=== PATIENT | male | born 1965 | race Caucasian/White ===

== ENCOUNTER 2019-12-27 15:32 | Emergency (ER) | payer MEDICARE ==
[~2019-12-27] VITALS: Ht 170.1 cm; Wt 86.3 kg
[~2019-12-27 15:32] MED LIST: BACLOFEN; CPR500T PO; CYMBALTA; GABAPENTIN; LISINOPRIL; OXYCONTIN; PREVACID; RISPERIDONE; TRAMADOL; TRILIPIX; [UNRECOGNIZED DRUG - REMARK]
--- NOTE | 2019-12-27 15:40 | NUR ---
Brought to ED RM 1 for AMS complaint. Hx being obtained from son and his significant other. Pt had an appt with Dr Guerrero this a.m. and family retuned him to home at 0900 and patient was at normal mental status when last seen then. Pt was unable to get urine for Dr Guerrero as he had emptied his neurogenic bladder via catheter prior to appt not remembering he needed to give urine. Pt's son called the house at 1515 checking on patient and he seemed confused and or not getting facts straight so son went to check on him. Pt states he even found him with the door open and not able to process anything. Son checked patient with accucheck and reported it was 147. Initially son thought he saw a mouth droop on right side but now reports his smile appears more normal. Pt has eyes closed frequently and barely keeps them open. Beginning neuro exam with Dr Preston it is discovered patient has right eye ptosis as normal per son. Pt can not answer question except knew name and at ER. Unable to do age, birthdate, month, year, or current time. Cannot not elicit a valid history of patient. Prior visit yrs ago at [facility].
--- NOTE | 2019-12-27 15:54 | NUR ---
18 ga placed to [facility] an labs drawn.
--- NOTE | 2019-12-27 16:00 | NUR ---
To CT, patient was difficult to get NIH exam completed prior, very drowsy and difficult to follow directions and yet when awake appears unable to complete exam with numerous re-instruction.
[2019-12-27 16:07] LABS: HEMATOCRIT 40 % (40-54); HEMOGLOBIN 14.2 G/DL (13.3-17.7); MEAN CORPUSCULAR HEMOGLOBIN 31 PG (25-34); WHITE BLOOD COUNT 6.7 10^3/uL (4.3-11.0)
[2019-12-27 16:08] LABS: BASOPHILS % (AUTO) 1 % (0-10); EOSINOPHILS # (AUTO) 0.1 10^3/uL (0.0-0.3); EOSINOPHILS % (AUTO) 1 % (0-10); LYMPHOCYTES # (AUTO) 1.4 X 10^3 (1.0-4.0); LYMPHOCYTES % (AUTO) 20 % (12-44); MEAN CORPUSCULAR HGB CONC 35 G/DL (32-36); MEAN CORPUSCULAR VOLUME 88 FL (80-99); MEAN PLATELET VOLUME 8.6 FL (7.4-10.4); MONOCYTES # (AUTO) 0.5 X 10^3 (0.0-1.0); MONOCYTES % (AUTO) 7 % (0-12); NEUTROPHILS # (AUTO) 4.7 X 10^3 (1.8-7.8); NEUTROPHILS % (AUTO) 71 % (42-75); PLATELET COUNT 330 10^3/uL (130-400); RED CELL DISTRIBUTION WIDTH 12.8 % (10.0-14.5)
--- NOTE | 2019-12-27 16:10 | NUR ---
Pietro luis in EDM - 12/27/19 at 1843 by RODRIGUEZPPA Deferred NIH exam as sedated from Ativan in CT to comply with obtaining CT work up. Pt would not lay still
--- NOTE | 2019-12-27 16:10 | ED General ---
General Stated Complaint: ALTERED MENTAL STATUS History of Present Illness Date Seen by Provider: Dec 27, 2019 Time Seen by Provider: 16:08 Initial Comments Patient presenting to emergency department for evaluation of multiple neurologic symptoms that started sometime in between 9:30 and 3:30 today. Patient was last seen normal at 9:30 this morning by family as he was speaking normally and acting normally. However son called him around 3:15 to 330 today and was slurring his words and was quite confused and did not seem to follow commands well. He is usually alert and oriented 3 and has clear speech and is currently not acting anything like himself. He does not have access to his medications to take more than he should and they also say that he does not drink alcohol. Disha billings's blood sugar was 140. He does have a history of hypertension diabetes high cholesterol and does not take any blood thinners. He is in no obvious distress with normal vital signs. Allergies and Home Medications Allergies Coded Allergies: Cortisone (Verified Allergy, 11/18/12) Home Medications [Baclofen] , 5 TIMES/DAY, (Reported) [Gabapentin] , TID, (Reported) [Tramadol] , 5 TIMES/DAY, (Reported) [Trilipix] , DAILY, (Reported) Patient Home Medication List Home Medication List Reviewed: Yes Review of Systems Review of Systems Constitutional: no symptoms reported EENTM: no symptoms reported Respiratory: no symptoms reported Cardiovascular: no symptoms reported Gastrointestinal: no symptoms reported Genitourinary: other (self catheterizes for neurogenic bladder) Musculoskeletal: joint pain, muscle pain Skin: no symptoms reported Psychiatric/Neurological: Other (slurred speech and confusion) All Other Systems Reviewed Negative Unless Noted: Yes Past Eysgcfj-Cludfp-Cdepbc Hx Patient Social History Recent Foreign Travel: No Contact w/Someone Who Travel: No Immunizations Up To Date Date of Pneumonia Vaccine: Aug 21, 2009 Date of Influenza Vaccine: Sep 20, 2012 Past Medical History Asthma Renal Failure Diabetes, Non-Insulin dep Adverse Reaction/Blood Tranf: No Physical Exam Vital Signs Vital Signs - First Documented 12/27/19 15:40 Temp 37.2 Pulse 92 Resp 20 B/P (MAP) 133/87 (102) Pulse Ox 95 O2 Delivery Room Air Capillary Refill : Height, Weight, BMI Height: '" Weight: lbs. oz. kg; BMI Method:Stated General Appearance: Other (lying in bed with his eyes closed) HEENT: PERRL/EOMI Neck: Non Tender, Supple Respiratory: Lungs Clear, No Respiratory Distress Cardiovascular: Regular Rate, Rhythm Gastrointestinal: Non Tender, Soft Back: Normal Inspection Extremity: Normal Capillary Refill Neurologic/Psychiatric: Alert, Disoriented, Other (patient received an NIH stroke scale of 9 as he is disoriented to time. He has decreased sensation in multiple areas as well as limb ataxia with his left upper extremity. He has dysarthria and dysphagia. ) Skin: Normal Color, Warm/Dry Progress/Results/Core Measures Suspected Sepsis SIRS Temperature: Pulse: Respiratory Rate: Laboratory Tests 12/27/19 15:54: White Blood Count 6.7 Blood Pressure / Mean: Laboratory Tests 12/27/19 15:54: Creatinine 1.05, INR Comment 1.0, Platelet Count 330, Total Bilirubin 0.2 Results/Orders Lab Results Laboratory Tests Test 12/27/19 15:54 Range/Units White Blood Count 6.7 4.3-11.0 10^3/uL Red Blood Count 4.59 4.35-5.85 10^6/uL Hemoglobin 14.2 13.3-17.7 G/DL Hematocrit 40 40-54 % Mean Corpuscular Volume 88 80-99 FL Mean Corpuscular Hemoglobin 31 25-34 PG Mean Corpuscular Hemoglobin Concent 35 32-36 G/DL Red Cell Distribution Width 12.8 10.0-14.5 % Platelet Count 330 130-400 10^3/uL Mean Platelet Volume 8.6 7.4-10.4 FL Neutrophils (%) (Auto) 71 42-75 % Lymphocytes (%) (Auto) 20 12-44 % Monocytes (%) (Auto) 7 0-12 % Eosinophils (%) (Auto) 1 0-10 % Basophils (%) (Auto) 1 0-10 % Neutrophils # (Auto) 4.7 1.8-7.8 X 10^3 Lymphocytes # (Auto) 1.4 1.0-4.0 X 10^3 Monocytes # (Auto) 0.5 0.0-1.0 X 10^3 Eosinophils # (Auto) 0.1 0.0-0.3 10^3/uL Basophils # (Auto) 0.0 0.0-0.1 10^3/uL Prothrombin Time 14.0 12.2-14.7 SEC INR Comment 1.0 0.8-1.4 Activated Partial Thromboplast Time 31 24-35 SEC Sodium Level 138 135-145 MMOL/L Potassium Level 3.6 3.6-5.0 MMOL/L Chloride Level 102 98-107 MMOL/L Carbon Dioxide Level 24 21-32 MMOL/L Anion Gap 12 5-14 MMOL/L Blood Urea Nitrogen 21 H 7-18 MG/DL Creatinine 1.05 0.60-1.30 MG/DL Estimat Glomerular Filtration Rate > 60 BUN/Creatinine Ratio 20 Glucose Level 175 H 70-105 MG/DL Calcium Level 10.2 H 8.5-10.1 MG/DL Corrected Calcium 8.5-10.1 MG/DL Magnesium Level 2.0 1.6-2.4 MG/DL Total Bilirubin 0.2 0.1-1.0 MG/DL Aspartate Amino Transf (AST/SGOT) 15 5-34 U/L Alanine Aminotransferase (ALT/SGPT) 23 0-55 U/L Alkaline Phosphatase 78 40-136 U/L Troponin I < 0.30 <0.30 NG/ML Pro-B-Type Natriuretic Peptide 17.0 <75.0 PG/ML Total Protein 7.1 6.4-8.2 GM/DL Albumin 4.6 H 3.2-4.5 GM/DL Serum Alcohol < 10 <10 MG/DL My Orders Orders - CAROLYN CABALLERO DO Alcohol (12/27/19 15:51) Ct Head Wo (12/27/19 15:51) Cbc With Automated Diff (12/27/19 15:51) Comprehensive Metabolic Panel (12/27/19 15:51) Drug Screen Stat (Urine) (12/27/19 15:51) Magnesium (12/27/19 15:51) Partial Thromboplastin Time (12/27/19 15:51) Probnp Fs (12/27/19 15:51) Protime With Inr (12/27/19 15:51) Troponin I Fs (12/27/19 15:51) Ua Culture If Indicated (12/27/19 15:51) Chest 1 View Ap/Pa Only (12/27/19 15:51) Ekg Tracing (12/27/19 15:51) Ct Angio Head/Neck (12/27/19 15:51) Ct Head Perfusion W/ Contrast (12/27/19 15:51) Lorazepam Injection (Ativan Injection) (12/27/19 16:30) Lorazepam Injection (Ativan Injection) (12/27/19 16:13) Iohexol Injection (Omnipaque 350 Mg/Ml 1 (12/27/19 17:00) Received Contrast (Hold Metformin- Contr (12/27/19 17:00) Sodium Chloride Flush (Catheter Flush Sy (12/27/19 17:00) Ns (Ivpb) (Sodium Chloride 0.9%) (12/27/19 17:00) Medications Given in ED Current Medications Medications Dose Ordered Sig/Estelle Route Start Time Stop Time Status Last Admin Dose Admin Iohexol 150 ml ONCE ONCE IV 12/27/19 17:00 12/27/19 17:01 12/27/19 16:55 150 ML Sodium Chloride 10 ml NEEDED PRN IV 12/27/19 17:00 12/27/19 16:55 10 ML Sodium Chloride 250 ml ONCE ONCE IV 12/27/19 17:00 12/27/19 17:01 12/27/19 16:55 200 ML Vital Signs/I&O 12/27/19 15:40 Temp 37.2 Pulse 92 Resp 20 B/P (MAP) 133/87 (102) Pulse Ox 95 O2 Delivery Room Air Capillary Refill : Progress Note : Progress Note Patient certainly could have stroke symptoms however something more global could be going on as well. I will check labs CT imaging including angiography and brain perfusion and then reassess. I was called by the radiologist and told that there appears to be a distal left M1 occlusion of the MCA. He then consulted with his neuro interventional doctor and they felt that it may just be an early branch occlusion. I spoke to [facility] about patient's symptoms and his imaging and carotid the images to them. They stated that that he may not end up needing clot retrieval given his symptoms and possible abnormal imaging would be willing to take him to and see if any acute intervention is indicated. I explained this to the family including son that I'm not sure what exactly what will be done at . They verbalized understanding and consented to transfer. Patient will be transferred via ground in guarded condition. felt that he would benefit from a faster transfer and asked us to see if he could go via helicopter. Critical care time of 44 minutes. Critical Care Note Critical Care Total Time (minutes) 44 Departure Impression Primary Impression: CVA (cerebral vascular accident) Qualified Codes: I63.9 - Cerebral infarction, unspecified Additional Impression: Acute encephalopathy Disposition: XFER SHT-TRM HOSP Condition: Critical Transfer Transfer Reason: Exceeds level of care Time Spoke to Accepting Phy: 17:00 Transfer Facility: [facility] Method of Transfer: Air Departure-Patient Inst. Referrals: NO,LOCAL PHYSICIAN (PCP/Family) Primary Care Physician CAROLYN CABALLERO DO Dec 27, 2019 16:10
[2019-12-27] MEDS ORDERED: LORazepam INJ 2 MG/ML (ATIVAN) VIAL ONE (16:13)
--- NOTE | 2019-12-27 16:19 | NUR ---
To CT to admin Ativan 1 mg SIVP as patient will not lie still and moving head within the head straps and will not be an optimal exam CTA head and neck to have persistant movement as patient not following commands to lie still and not move. Pt is still communicating inappropriate to answering questions.
[2019-12-27] MEDS ORDERED: LORazepam INJ 2 MG/ML (ATIVAN) VIAL IVP ONE (16:30)
[2019-12-27 16:34] LABS: BILIRUBIN,TOTAL 0.2 MG/DL (0.1-1.0); BUN/CREATININE RATIO 20; CALCIUM 10.2 MG/DL (8.5-10.1); CARBON DIOXIDE 24 MMOL/L (21-32); CHLORIDE 102 MMOL/L (98-107); CREATININE SERUM 1.05 MG/DL (0.60-1.30); GFR ESTIMATED > 60; GLUCOSE 175 MG/DL (70-105); POTASSIUM 3.6 MMOL/L (3.6-5.0); SODIUM 138 MMOL/L (135-145)
[2019-12-27 16:35] LABS: ALANINE AMINOTRANSFERASE 23 U/L (0-55); ALBUMIN 4.6 GM/DL (3.2-4.5); ALKALINE PHOSPHATASE 78 U/L (40-136); TOTAL PROTEIN 7.1 GM/DL (6.4-8.2)
--- NOTE | 2019-12-27 16:45 | NUR ---
Return from CT depart and being placed on monitoring, EKG being done also. Pt is sedated from Ativan during CT and defered NIH scoring exam as patient will not arouse enough to follow commands.
[2019-12-27] MEDS ORDERED: MAGN400T8 (16:52)
[2019-12-27] MEDS ORDERED: AMIT150T (16:52)
[2019-12-27] MEDS ORDERED: TIZA2TAB4 (16:57)
[2019-12-27] MEDS ORDERED: LOSA25TA41 (16:57)
[2019-12-27] MEDS ORDERED: PREG200C28 (16:57)
[2019-12-27] MEDS ORDERED: bethanechol (16:57)
[2019-12-27] MEDS ORDERED: MONT10TA24 (16:57)
[2019-12-27] MEDS ORDERED: GEMF600T8 (16:57)
[2019-12-27] MEDS ORDERED: BUPR150T14 (16:57)
[2019-12-27] MEDS ORDERED: TRAM50TA3 (16:59)
[2019-12-27] MEDS ORDERED: NS 250 ML (IVPB) BAG IV ONE (17:00)
[2019-12-27] MEDS ORDERED: HOLD METFORMIN - RECEIVED CONTRAST 20 ML VIAL IV SCH (17:00)
[2019-12-27] MEDS ORDERED: IOHEXOL 350 MG/ML 150 ML (OMNIPAQUE 350) VIAL IV ONE (17:00)
[2019-12-27] MEDS ORDERED: CATHETER FLUSH 10 ML SYR IV PRN (17:00)
--- NOTE | 2019-12-27 17:00 | NUR ---
Spoke with Norma with Transfer Call Center for [facility]. Plan is to review these CTA studies which are being transmitted but they have called numerous times as delayed getting them sent as very slow coming from [place]. 3 prior radiologist have read and given their opinion. The request is to defer the EMS [facility] by ground as the team awaits an activation 20 min TRAFFIC RATE ANALYST, please send by air. Notified Dr Preston.
--- NOTE | 2019-12-27 17:01 | Diagnostic Imaging Report ---
PROCEDURE: CT head without contrast. TECHNIQUE: Multiple contiguous axial images were obtained through the brain without the use of intravenous contrast. Auto Exposure Controls were utilized during the CT exam to meet ALARA standards for radiation dose reduction. INDICATION: Altered mental status. Right-sided facial droop. COMPARISON: None. FINDINGS: No large acute territorial ischemia. Decreased attenuation is seen in the periventricular and subcortical white matter. No evidence of acute hemorrhage or mass effect. No midline shift or mass effect. The ventricles, cortical sulci, and basilar cisterns are patent and unremarkable. The calvarium is intact. The visualized paranasal sinuses are clear. IMPRESSION: 1. No large acute territorial ischemia. Age-indeterminate microvascular disease is seen in the periventricular and subcortical white matter. If continued concern for acute ischemia, consider brain MRI to further evaluate. 2. No acute hemorrhage or mass effect. Findings were discussed with Dr. Preston at 4:55 p.m. on 12/27/[address] Kahsif Hanks. Dictated by: Dictated on workstation # [id number]
--- NOTE | 2019-12-27 17:03 | Diagnostic Imaging Report ---
TECHNIQUE: CT cerebral perfusion study was performed using a dual slab technique. Post processing was performed using the RAPID software. 80 mL of Omnipaque [address] scans use one or more of the following dose optimizing techniques: automated exposure control, MA and/or KvP adjustment based on patient size and exam type or iterative reconstruction. REASON FOR EXAM: Slurred speech. Right facial droop. Altered mental status. COMPARISON: CT head performed the same date. FINDINGS: There is no significant motion artifact. The arterial inflow and venous outflow graphs are adequate. The volume of parenchyma demonstrating cerebral blood flow of less than 30% is equal to 0 mL. The volume of parenchyma showing a Tmax greater than 6 seconds is 0 mL. Parenchyma are demonstrated Tmax greater than 8 seconds equals 0 mL, and greater than 10 seconds 0 mL. IMPRESSION: 1. No evidence of acute ischemia on CT perfusion imaging. If continued concern consider brain MRI to further evaluate. Findings were discussed with Dr. Preston at 4:55 p.m. on 12/27/[address] Kashif Hanks. Dictated by: Dictated on workstation # [id number]
--- NOTE | 2019-12-27 17:04 | NUR ---
[place] [facility] contacted at this time and helicopter transfer requested. Rose excepted transfer with ETA of [id number].
--- NOTE | 2019-12-27 17:15 | NUR ---
Called report to Sabina SUTTON. Plan is to give them a call when they depart from [facility] and ask [facility] to call 20 min out as an activation will called. The Stroke Team will meet helicoptor staff at [facility] second floor [facility] [place] to direct to proper area.
--- NOTE | 2019-12-27 17:19 | Diagnostic Imaging Report ---
PROCEDURE: CT angiography of the head and CT angiography of the neck with and without contrast. TECHNIQUE: Contiguous noncontrast images were obtained from the skull base through the vertex. After intravenous contrast administration, helical CT angiography of the neck was performed. Source data was reformatted into 3D MIP projections. Delayed post contrast acquisition was also obtained. Auto Exposure Controls were utilized during the CT exam to meet ALARA standards for radiation dose reduction. INDICATION: Slurred speech. Altered mental status. Right-sided facial droop. COMPARISON: CT perfusion performed earlier the same date. FINDINGS: CTA Neck: The visualized portions of the aortic arch demonstrate no evidence of aneurysm or dissection. There is conventional branching pattern of the great vessels of the aorta. The brachiocephalic artery is normal in course and caliber. The right and left common carotid origins are unremarkable. The origin of the left subclavian artery is patent. The common carotid arteries and internal carotid arteries demonstrate a normal course and caliber. No evidence of stenosis or dissection in the carotid systems. The external carotid arteries are patent and unremarkable. The vertebral arteries are codominant. The origin of the right vertebral artery is seen and is unremarkable. The origin of the left vertebral artery is seen and is unremarkable. There is no focal stenosis seen within the neck. There is no dissection. The vertebral arteries are well visualized to up to the level of the basilar artery. The osseous structures of the cervical spine demonstrate degenerative changes with reversal of the normal lordotic curvature of the cervical spine. Included views through the lung apices demonstrate no focal consolidation. CTA brain: The bilateral distal ICAs are visualized without stenosis or dissection. No stenosis is seen in the bilateral anterior, middle, and posterior cerebral arteries. No evidence of aneurysm the [place]. In the posterior circulation, both of the vertebral arteries demonstrate normal opacification. The vertebral arteries are codominant. Both the right and left PICA arteries are identified. The basilar artery is normal in course and caliber. The terminal branch vessels including the superior cerebellar arteries unremarkable. IMPRESSION: 1. No stenosis or aneurysm in the [place]. No findings to suggest large vessel occlusion. 2. No stenosis or dissection the bilateral carotid and vertebral arteries. Dictated by: Dictated on workstation # [id number]
--- NOTE | 2019-12-27 17:21 | Diagnostic Imaging Report ---
INDICATION: Altered mental status, facial droop. COMPARISON: None available. TECHNIQUE: Single radiograph of the chest dated December 27, 2019. FINDINGS: The cardiac silhouette is within normal limits in size. Perihilar opacities are present. The lungs otherwise appear clear. No pleural effusion. No pneumothorax. No acute osseous abnormality. IMPRESSION: Mild perihilar pneumonitis versus pulmonary vascular congestion without interstitial edema. Dictated by: Dictated on workstation # [id number]
--- NOTE | 2019-12-27 17:40 | NUR ---
Helicopter has landed.
--- NOTE | 2019-12-27 17:50 | NUR ---
Bedside report being given, staff also communicating with family.
[2019-12-27 18:10] VITALS: BP 117/65
--- NOTE | 2019-12-27 18:10 | NUR ---
Pt departing at this time from ED. See discharge summary.
--- NOTE | 2019-12-27 18:20 | NUR ---
Notify Transfer Call Center Norma of air lift off from helipad. 40 min ETA for bar pilot. VSS, no change, appears sleeping and remains sedate. Family will be coming to [facility]. No Dysphagia exam completed and remains NPO, altered mental status and further studies to complete.
== END 2019-12-27 18:10 | disposition short-term general hospital (02) ==
LOC: EDUNIT# 15:32 → ER FS 15:34
DX: I63.9 Cerebral infarction, unspecified (principal); G93.40 Encephalopathy, unspecified; E78.00 Pure hypercholesterolemia, unspecified; E11.10 Type 2 diabetes mellitus with ketoacidosis without coma; Z88.8 Allergy status to other drugs, medicaments and biological substances
CPT/HCPCS: 0042T; 36415; 70450; 70496; 70498; 71045; 80053; 80320; 83735; 83880; 84484; 85025; 85610; 85730; 93005; 96374

== ENCOUNTER 2023-08-09 20:43 | Emergency (ER) | payer MEDICARE ==
[~2023-08-09 20:43] MED LIST changes: +AMIT150T; +BUPR-105; +GEMF600T88; +LOSA25TA41; +MGX400T; +MONT-40; +PREG200C28; +TIZA-169; +TRAM50TA3; +bethanechol
--- NOTE | 2023-08-09 20:53 | ED General ---
General Stated Complaint: ALLERGIC REACTION History of Present Illness Date Seen by Provider: Aug 09, 2023 Time Seen by Provider: 20:51 Initial Comments 58 yr M with PMH of dementia, COPD, is here with c/o an allergic reaction to Bactrim. Pt was prescribed Bactrim by his PCP for a UTI, and he took it for the first time today evening at 6:30 pm, and started developing a diffuse rash, redness, SOB, throat itching, abdominal cramping, nausea which was worsening. In the ER pt was shaky and agitated and felt SOB. Denies swelling, palpitations, chest pain, blurry vision, diarrhea, fever. Allergies and Home Medications Allergies Coded Allergies: cortisone (Verified Allergy, Unknown, 01/02/20) Patient Home Medication List Home Medication List Reviewed: Yes Amitriptyline HCl (Amitriptyline HCl) 150 Mg Tablet, (Reported) Entered as Reported by: ELAINA KWON on 12/27/191651 Bupropion HCl (Bupropion HCl Sr) 150 Mg Tablet.er, (Reported) Entered as Reported by: ELAINA KWON on 12/27/191656 Gemfibrozil (Gemfibrozil) 600 Mg Tablet, (Reported) Entered as Reported by: ELAINA KWON on 12/27/191656 Losartan Potassium (Losartan Potassium) 25 Mg Tablet, (Reported) Entered as Reported by: ELAINA KWON on 12/27/191656 Magnesium Oxide (Magnesium Oxide) 400 Mg Tablet, (Reported) Entered as Reported by: ELAINA KWON on 12/27/191651 Montelukast Sodium (Montelukast Sodium) 10 Mg Tablet, (Reported) Entered as Reported by: ELAINA KWON on 12/27/191656 Pregabalin (Pregabalin) 200 Mg Capsule, (Reported) Entered as Reported by: ELAINA KWON on 12/27/191656 Tizanidine HCl (Tizanidine HCl) 2 Mg Tablet, (Reported) Entered as Reported by: ELAINA KWON on 12/27/191656 Tramadol HCl (Tramadol HCl) 50 Mg Tablet, (Reported) Entered as Reported by: ELAINA KWON on 12/27/19 165 [Baclofen] , 5 TIMES/DAY, (Reported) Entered as Reported by: MANUEL SILVERMAN on 11/18/12 1142 [Gabapentin] , TID, (Reported) Entered as Reported by: MANUEL SILVERMAN on 11/18/12 1142 [Tramadol] , 5 TIMES/DAY, (Reported) Entered as Reported by: MANUEL SILVERMAN on 11/18/12 1142 [Trilipix] , DAILY, (Reported) Entered as Reported by: MANUEL SILVERMAN on 11/18/12 1142 [bethanechol] , (Reported) Entered as Reported by: ELAINA KWON on 12/27/19 5707 Review of Systems Review of Systems Constitutional: dizziness EENTM: other Respiratory: short of breath Cardiovascular: no symptoms reported Gastrointestinal: nausea Genitourinary: no symptoms reported Musculoskeletal: no symptoms reported Skin: see HPI Psychiatric/Neurological: Anxiety Hematologic/Lymphatic: No Symptoms Reported Immunological/Allergic: no symptoms reported Past Qyrqdjp-Djmevm-Bhvrdg Hx Seasonal Allergies Seasonal Allergies: No Past Medical History Surgeries: Yes (Hernia report ) Respiratory: Yes Asthma, COPD Cardiac: No High Cholesterol, Hypertension Neurological: Yes Cerebral Palsy Genitourinary: Yes (Retention hx) Renal Failure, Neurogenic Bladder Gastrointestinal: No Gastroesophageal Reflux Musculoskeletal: Yes (Chronic pain r/t Cerebral Palsy) Chronic Back Pain Endocrine: Yes Diabetes, Non-Insulin dep HEENT: No Cancer: No Psychosocial: No Integumentary: No Blood Disorders: No Adverse Reaction/Blood Tranf: No Physical Exam Vital Signs Vital Signs - First Documented Capillary Refill : Height, Weight, BMI Height: '" Weight: lbs. oz. kg; 29.00 BMI Method:Stated General Appearance: Anxious, Moderate Distress HEENT: PERRL/EOMI, Pharynx Normal (no swelling, no tongue swelling), Other (no oral swelling) Neck: Full Range of Motion, Normal Inspection, Non Tender, Supple Respiratory: No Accessory Muscle Use, No Respiratory Distress (expiratory, intermittent), Wheezing Cardiovascular: Regular Rate, Rhythm, No Edema Gastrointestinal: Normal Bowel Sounds, Soft, Other (cramping in lower abdomen) Extremity: Normal Range of Motion Neurologic/Psychiatric: Alert, Oriented x3, No Motor/Sensory Deficits, Normal Mood/Affect Skin: Erythema (generalized, head to foot), Rash (mild macular rask throughout body) Progress/Results/Core Measures Suspected Sepsis SIRS Temperature: Pulse: Respiratory Rate: Blood Pressure / Mean: Results/Orders My Orders Orders - GOVIND LOPEZ MD Diphenhydramine Injection (Diphenhydram (08/09/23 21:00) Famotidine Injection (Famotidine Injec (08/09/23 21:00) Ed Iv/Invasive Line Start (08/09/23 20:55) Ns Iv 1000 Ml (Ns Iv 1000 Ml) (08/09/23 21:00) Ondansetron Injection (Ondansetron Inj (08/09/23 21:00) Epinephrine Adult Auto-Inject (Epinephri (08/09/23 21:15) Methylprednisolone Sod Succ (Methylpredn (08/09/23 21:15) Medications Given in ED Current Medications Medications Dose Ordered Sig/Estelle Route Start Time Stop Time Status Last Admin Dose Admin Diphenhydramine HCl 50 mg ONCE ONCE IVP 08/09/23 21:00 08/09/23 21:01 DC 08/09/23 21:05 50 MG Epinephrine 0.3 mg ONCE ONCE IM 08/09/23 21:15 08/09/23 21:16 DC 08/09/23 21:10 0.3 MG Famotidine 20 mg ONCE ONCE IVP 08/09/23 21:00 08/09/23 21:01 DC 08/09/23 21:05 20 MG Methylprednisolone Sodium Succinate 40 mg ONCE ONCE IV 08/09/23 21:15 08/09/23 21:16 DC 08/09/23 21:13 40 MG Ondansetron HCl 4 mg ONCE ONCE IVP 08/09/23 21:00 08/09/23 21:06 DC 08/09/23 21:09 4 MG Vital Signs/I&O 08/09/23 08/09/23 20:50 20:50 Temp 36.0 Pulse 73 Resp 24 B/P (MAP) 82/57 (65) Pulse Ox 96 O2 Delivery Room Air Room Air Capillary Refill : Progress Note : Progress Note 1. ALLERGIC REACTION TO SULFA ( BACTRIM) - Benadryl 50mg iv/ Pepcid 20mg iv/ NS IVF bolus/ EPi pen im given x1 - Cortisone allergy documented, but pt unable to tell us the reaction, and unsure if it was allergy to a topical crea. Called ICU consult at 21:05 and spoke to E-ICU consult: Dr. Mejía, who recommended to give Solumedrol 40mg iv. We gave it to the pt and he did not have any reactions to it. - Pt improved after all medications with symptoms resolving and vitals improving. Pt was initially hypotensive but BP improved after receiving epi and fluids. - Advised Benaadryl 25mg oral tid for the next 3 days, Pepcid 20mg daily ( over the counter) - Prescriptions given for a dual pack epi pen, Prednisone 50 mg daily for the next 3 days - Advised to stop taking Bactrim, and prescribed new antibiotic for UTI, Keflex 500mg bid for 5 days. - Follow up with PCP in 3 days - Adequate hydration advised - Zofran pack sent with pt from ER in case of nausea.a. -The patient was seen in the ED, and treated appropriately to presentation at a specific point in time. Patient is informed that there is a possibility that disease and illness can evolve and change in acuity rapidly or slowly after patient is discharged from the ER. Precautionary advice given to the patient for immediate return to ER if symptoms worsen or do not resolve, and to seek emergency care sooner rather than later. Pt also advised on the importance of PCP follow up and compliance with management and follow up plan with PCP and/or specialist, as this is part of the management plan. Pt verbally expressed understanding. Departure Impression Primary Impression: Allergy to sulfa drugs Additional Impression: Allergic drug reaction Qualified Codes: T78.40XA - Allergy, unspecified, initial encounter Disposition: 01 HOME, SELF-CARE Condition: Improved Departure-Patient Inst. Referrals: NO,LOCAL PHYSICIAN (PCP/Family) Primary Care Physician Patient Instructions: Adverse Drug Reactions, Adult, Drug allergy Add. Discharge Instructions: - Advised Benaadryl 25mg oral tid for the next 3 days, Pepcid 20mg daily ( over the counter) - Prescriptions given for a dual pack epi pen, Prednisone 50 mg daily for the next 3 days - Advised to stop taking Bactrim, and prescribed new antibiotic for UTI, Keflex 500mg bid for 5 days. - Follow up with PCP in 3 days - Adequate hydration advised - Zofran pack sent with pt from ER in case of nausea. Scripts Cephalexin (Cephalexin) 500 Mg Tablet 500 MG PO BID for 5 Days, #10 TAB Prov: GOVIND LOPEZ MD 08/09/23 Epinephrine (Epipen 2-Yrn) 0.3 Mg/0.3 Ml Auto.injct 0.3 MG IJ Q4M for Wheezing for 1 Day, ML Prov: GOVIND LOPEZ MD 08/09/23 Prednisone (Prednisone) 20 Mg Tab 40 MG PO DAILY for 3 Days, #3 TAB Prov: GOVIND LOPEZ MD 08/09/23 GOVIND LOPEZ MD Aug 09, 2023 20:53
[2023-08-09] MEDS ORDERED: NS IV 1000 ML 1,000 ML IV SCH (21:00)
[2023-08-09] MEDS ORDERED: ONDANSETRON INJECTION 4 MG/2 ML (SDV) IVP ONE (21:00)
[2023-08-09] MEDS ORDERED: diphenhydrAMINE INJ 50 MG/ML VIAL IVP ONE (21:00)
[2023-08-09] MEDS ORDERED: FAMOTIDINE INJ 20MG/2ML VIAL IVP ONE (21:00)
[2023-08-09] MEDS ORDERED: methylPREDNISolone INJ 40 MG/ML VIAL IV ONE (21:15)
[2023-08-09] MEDS ORDERED: EPINEPHrine (ADULT) 0.3 MG/0.3 ML auto-inject IM ONE (21:15)
[2023-08-09] MEDS ORDERED: PRD20T PO ×2 (22:30→22:39)
[2023-08-09] MEDS ORDERED: CEPH500T PO ×2 (22:30→22:39)
[2023-08-09] MEDS ORDERED: RX-ONDANSETRON 4 MG ODT (ZOFRAN) PPK #4 PO PRN (22:30)
[2023-08-09] MEDS ORDERED: EPIN0.3P3 IJ ×2 (22:30→22:39)
[2023-08-09 22:35] VITALS: BP 130/59
[2023-08-09] MEDS ORDERED: RX-ONDANSETRON 4 MG ODT (ZOFRAN) PPK #4 ONE (22:40)
== END 2023-08-09 22:35 | disposition home or self-care (01) ==
LOC: EDUNIT# 20:43 → ER FS 20:45
DX: R21 Rash and other nonspecific skin eruption (principal); T37.0X5A Adverse effect of sulfonamides, initial encounter